=== PATIENT | male | born 1965 | race Caucasian/White ===

== ENCOUNTER 2019-02-09 10:32 | Emergency (ER) | payer BC, SELFPAY ==
[2019-02-09] VITALS (13 sets, daily range): BP systolic 122–142; BP diastolic 75–95; PULSE 83–116; RESP 14–28; TEMP 36.5; O2SAT 93–96
--- NOTE | 2019-02-09 11:17 | W.ED.GENAD ---
Discharge Plan Disposition Patient Disposition: HOME Condition: Improving Discharge Details Chief Complaint: GenMedical Clinical Impression: Acute viral syndrome, Urticaria Primary Care Provider: Omari Figueroa ED Provider: Maynor Tatum Home Meds and New Rx's Prescriptions: New dexamethasone [dexamethasone] 4 MG tablet 8 mg PO DAILY Qty: 4 RF: 0 No Action Electrolye Solution 1 dose PO TID RF: 0 Grass Fed Kidney 1 dose PO TID RF: 0 Discharge Instructions Instructions: Urticaria (ED) Additional Instructions: 1. Drink plenty of fluids. 2. Continue all medications as prescribed. 3. Acetaminophen 1000mg every 4 hours (up to 5 time a day) and/or ibuprofen 600mg every 6 hours as needed for fever or pain. 4. Decadron 8 mg once a day for 2 days starting tomorrow. 5. Zyrtec 10 mg once a day. 6. Ranitidine 300 mg at bedtime. Return to the Emergency Department (ED) if your condition worsens, does not improve as expected, or for ANY other concerns. Specifically, return if you have new or uncontrolled pain, worsening fever, difficulty breathing, vomiting, or are unable to drink fluids. Medical Decision Making Presents with acute urticaria in the setting of 2 weeks of intermittent dyspnea, congestion, and minimally productive cough. 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 Nonfocal exam except for tachycardia and a generalized urticarial exanthem on the upper extremities and trunk.. EKG nondiagnostic. Clinically improved after receiving oral ranitidine, oral Decadron, and oral Zyrtec. Discharged home with a plan for continued Decadron, Zyrtec, and ranitidine. We will follow-up with his PCP. Pt evaluated immediately prior to discharge with improved symptoms, normal vital signs, and tolerating PO. The patient feels appropriate for discharge home. Discussed clinical/diagnostic findings. Discharged with a clear plan for outpatient follow up. Given usual and customary return instructions prior to discharge. Medical Records Medical records reviewed: Yes I reviewed the patient's medical records. ECG Data Attestation: I personally reviewed and interpreted this ECG (s) as follows: Prior ECG tracings: not available for review Interpretation: Sinus tachycardia 100 bpm. Left axis deviation. No acute ST changes HPI 53-year-old gentleman with an unremarkable past medical history although he notes having recurrent mild episodes of urticaria. Presents with 2 weeks of a persistent upper respiratory infection (mild dyspnea, cough, congestion) for which she has been taking electrolyte supplements and grass fed supplements. She presents with generalized urticaria and mild subjective dyspnea. He notes that over the past 2 weeks, his dyspnea is typically worse in the morning and then seems to clear throughout the day. His cough has been nonproductive but he has noted recent occasional tinge of blood. He has mild pleuritic chest pain associated with his cough and with inspiration. He also has noted palpitations/strong heartbeat recently. Otherwise he denies significant fever/chills, abdominal pain, change in bowel habits/melena/hematochezia, urinary symptoms. He has had no atypical lower extremity pain or swelling. He wears compression stockings chronically for lower extremity varicosities. General Date/Time Provider Initiated Documentation: 02/09/19 11:06. Related Data Home Medications Medication Instructions Recorded Confirmed Electrolye Solution 1 dose PO TID 02/09/19 Grass Fed Kidney 1 dose PO TID 02/09/19 dexamethasone 8 mg PO DAILY #4 tab 02/09/19 Previous Rx's Medication Instructions Recorded dexamethasone 8 mg PO DAILY #4 tab 02/09/19 Allergies Allergy/AdvReac Type Severity Reaction Status Date / Time No Known Allergies Allergy Unverified 02/09/19 11:16 General Stated Complaint: GenMedical ALIZA: 3 Review of Systems Review of Systems All systems are reviewed and are unremarkable except as noted in HPI and below: CONSTITUTIONAL: no fevers/chills, no change in appetite; mild subjective generalized weakness EYES: no change in vision HEENT: no throat pain or difficulty swallowing; no neck pain CARDIOVASCULAR: Pleuritic chest pain worse with inspiration or cough, palpitations, no sniffing leg swelling, or diaphoresis RESPIRATORY: Mild cough, dyspnea, wheezing worse in the morning. Occasional blood tinged sputum GASTROINTESTINAL: no abdominal pain, melena, nausea/emesis GENITOURINARY: no dysuria, flank pain, MUSCULOSKELETAL: no pack pain, myalgias, arthralgias INTEGUMENTARY: no rash, no wounds NEUROLOGIC: no headache, focal weakness, difficulty with speech, numbness PSYCHIATRIC: no confusion, no anxiety HEME: no easy bruising or bleeding ALLERGIC: New urticaria PFSH Social History Smoking/Tobacco Use Status: Never Alcohol Intake: never Substance use type: does not use Do you feel safe at home: Yes Do you feel safe in your relationship?: Yes Exam Narrative Exam Narrative: Nursing note and vital signs have been reviewed and noted. GENERAL: alert, active, no acute distress, well -hydrated, well-nourished HEENT: atraumatic/normocephalic, PERRLA, EOMI, conjunctiva clear, external ears/canals normal, nasal mucosa normal NECK: supple, full range of motion, no mass, normal lymphadenopathy, no thyromegaly CARDIOVASCULAR: RRR, no murmurs, nl pulses, no edema PULMONARY: nl effort, no audible wheezing or stridor, nl breath sounds with no focal deficit. no chest wall tenderness ABDOMEN: soft, non-tender, non-distended, no mass, no organomegaly EXTREMITY: normal muscle tone, all joints with FROM, no deformity or tenderness SKIN: Urticarial patches on the trunk and upper extremities NEURO: gross motor exam normal, normal stance and gait PSYCH: alert and oriented, Course Vital Signs Temperature 97.7 F 02/09/19 11:11 Pulse 100 H 02/09/19 11:11 Respiratory Rate 18 02/09/19 11:11 Blood Pressure 142/95 H 02/09/19 11:11 Pulse Oximetry 94 L 02/09/19 11:11 Temperature 97.7 F 02/09/19 11:11 Temperature Source Temporal Artery Scan 02/09/19 11:11 Pulse 100 H 02/09/19 11:11 Respiratory Rate 18 02/09/19 11:11 Respiratory Effort Non-Labored 02/09/19 11:15 Blood Pressure 142/95 H 02/09/19 11:11 Blood Pressure Position Sitting 02/09/19 11:11 Pulse Oximetry 94 L 02/09/19 11:11 Oxygen Delivery Method Room Air 02/09/19 11:11 Oxygen Flow Rate 0 02/09/19 11:11 Pain Level 0 02/09/19 11:11
[2019-02-09] MEDS: Dexamethasone 4 MG TAB 8 MG PO (11:38)
[2019-02-09] MEDS: Cetirizine 10 MG TAB PO (11:38)
== END 2019-02-09 12:18 | disposition home or self-care (01) ==
PROVIDERS: Emergency Provider Emergency Medicine; PCP General Practice
DX: B34.9 Viral infection, unspecified (principal); L50.9 Urticaria, unspecified; R00.0 Tachycardia, unspecified
CPT/HCPCS: 93005; 99283; 93010; J8540

== ENCOUNTER 2019-07-07 02:51 | Outpatient (REF) | payer BC, SELFPAY ==
[2019-07-07 10:38] LABS: D-Dimer 374 ng/mlFEU (<500)
== END 2019-07-07 03:11 ==
LOC: LBN 02:51
PROVIDERS: PCP General Practice; Visit Provider Naturopath
DX: Z86.72 Personal history of thrombophlebitis (principal)
CPT/HCPCS: 85379

== ENCOUNTER 2019-12-27 08:08 | Outpatient (CLI) | payer OTHER, SELFPAY ==
[2019-12-27 09:25] LABS: Absolute Basophil Count 0.01 k/cumm (0.0-0.2); Absolute Eosinophil Count 0.03 k/cumm (0.0-0.7); Absolute Lymphocyte Count 0.98 k/cumm (1.2-3.4); Absolute Monocyte Count 0.29 k/cumm (0.11-0.7); Absolute Neutrophil Count 1.76 k/cumm (1.2-6.7); Basophils % 0.3; HCT 43.3 % (40.0-50.0); HGB 14.5 g/dL (13.5-17.5); Lymphocytes % 31.9; Mean Corp. HGB Concentration 33.5 g/dL (32.0-36.0); Mean Corpuscular Hemoglobin 29.3 pg (27.0-33.0); Mean Corpuscular Volume 87.5 fL (80-95); Mean Platelet Volume 9.6 fL (8.0-11.0); Monocytes % 9.4; Neutrophils % 57.4; Platelet Count 191 x1000/uL (130-400); RBC 4.95 m/cumm (4.50-6.00); RBC Distribution Width 14.3 % (11.8-14.1); White Blood Cell Count 3.07 k/cumm (4.4-10.8)
[2019-12-27 10:55] LABS: Ferritin 265 ng/mL (26-388); Vitamin B12 1001 pg/mL (193-986)
[2019-12-27 10:59] LABS: Folate > 20.0 ng/mL (8.6-20.0)
== END 2019-12-27 08:28 ==
PROVIDERS: PCP Naturopath; Visit Provider Naturopath
DX: L28.2 Other prurigo (principal); R77.8 Other specified abnormalities of plasma proteins; R79.89 Other specified abnormal findings of blood chemistry; R53.83 Other fatigue
CPT/HCPCS: 36415; 82607; 82728; 82746; 83088; 85025

== ENCOUNTER 2020-01-11 11:52 | Outpatient (CLI) | payer OTHER, SELFPAY ==
[2020-01-11 14:17] LABS: C-Reactive Protein 0.18 mg/dL (0.0-0.3)
[2020-01-11 15:11] LABS: ESR 13 mm/hr (1-20)
[2020-01-12 16:18] LABS: ANA Interpretation Positive (Negative); ANA Titer Pattern 1:320 Speckled
== END 2020-01-11 12:12 ==
PROVIDERS: PCP Naturopath; Visit Provider Naturopath
DX: M25.50 Pain in unspecified joint (principal)
CPT/HCPCS: 36415; 85652; 86038; 86140

== ENCOUNTER 2020-02-14 12:42 | Outpatient (CLI) | payer OTHER, SELFPAY ==
[2020-02-14 15:20] LABS: ALT 39 U/L (16-63); AST 30 U/L (15-37); Albumin 4.2 g/dL (3.4-5.0); Alkaline Phosphatase 46 U/L (46-116); Anion Gap 8.2 mmol/L (3-11); BUN 13 mg/dL (7-18); Bilirubin, Total 0.7 mg/dL (0.2-1.0); CO2 30.8 mmol/L (21.0-32.0); CREATININE 0.89 mg/dL (0.70-1.30); Calcium 9.1 mg/dL (8.5-10.1); Chloride 104 mmol/L (98-107); Ferritin 208 ng/mL (26-388); Glucose 83 mg/dL (74-106); Potassium 3.9 mmol/L (3.5-5.1); Sodium 143 mmol/L (136-145); Total Protein 7.6 g/dL (6.4-8.2)
[2020-02-15] LABS: Rheumatoid Factor <8.6 IU/mL (<12.0)
[2020-02-15 15:23] LABS: ANA Interpretation Positive (Negative); ANA Titer Pattern 1:320 Speckled
[2020-02-16 11:23] LABS: dsDNA Ab, IgG 20.4 IU/mL (<30.0)
[2020-02-16 14:19] LABS: RNP Ab, IgG 9.4 Units (<20.0); Sm (Smith) Ab, IgG 6.3 Units (<20.0)
== END 2020-02-14 13:02 ==
PROVIDERS: PCP Naturopath; Visit Provider Naturopath
DX: E78.5 Hyperlipidemia, unspecified (principal); R76.8 Other specified abnormal immunological findings in serum
CPT/HCPCS: 36415; 80053; 82728; 86038; 86225; 86235; 86431

== ENCOUNTER 2022-02-07 03:56 | Outpatient (CLI) | payer OTHER, SELFPAY ==
[2022-02-07 11:13] LABS: Kit/Specimen SENT
[2022-02-07 11:21] LABS: Abs Immature Grans 0.01 10^3/uL (0.0-0.06); Absolute Basophil Count 0.01 10^3/uL (0.0-0.2); Absolute Eosinophil Count 0.01 10^3/uL (0.0-0.7); Absolute Lymphocyte Count 1.17 10^3/uL (1.2-3.4); Absolute Monocyte Count 0.31 10^3/uL (0.1-0.8); Absolute Neutrophil Count 1.76 10^3/uL (1.2-6.7); Basophils % 0.3; Eosinophils % 0.3; HCT 43.2 % (40.0-50.0); HGB 14.2 g/dL (13.5-17.5); Immature Grans % 0.3; Lymphocytes % 35.8; MCH 29.8 pg (27.0-33.0); MCHC 32.9 % (32.0-36.0); MCV 90.8 fL (80-95); MPV 9.9 fL (8.0-11.0); Monocytes % 9.5; Neutrophils % 53.8; Nucleated RBC 0 %; Platelet Count 187 10^3/uL (130-400); RBC 4.76 10^6/uL (4.36-5.78); RDW 13.6 % (11.8-14.1); RDW-SD 45.8 fL; WBC 3.27 10^3/uL (4.4-10.8)
[2022-02-07 12:31] LABS: ALT 29 U/L (16-63); AST 25 U/L (15-37); Albumin 4.2 g/dL (3.4-5.0); Alkaline Phosphatase 45 U/L (46-116); Anion Gap 11.2 mmol/L (3-11); BUN 15 mg/dL (7-18); Bilirubin, Total 0.5 mg/dL (0.2-1.0); CO2 27.8 mmol/L (21.0-32.0); CREATININE 0.7 mg/dL (0.70-1.30); Calcium 8.6 mg/dL (8.5-10.1); Calculated LDL 192 mg/dL (<100); Chloride 101 mmol/L (98-107); Cholesterol 295 mg/dL (<200); Ferritin 42 ng/mL (26-388); Glucose 82 mg/dL (74-106); HDL Cholesterol 94 mg/dL (40-60); Potassium 4.3 mmol/L (3.5-5.1); Sodium 140 mmol/L (136-145); Total Protein 7.6 g/dL (6.4-8.2); Triglyceride 49 mg/dL (<150)
[2022-02-07 12:32] LABS: Folate > 20.0 ng/mL (8.6-20.0)
[2022-02-07 12:39] LABS: Vitamin D 25 Total 45.2 ng/mL (30-100)
[2022-02-08 07:59] LABS: Homocysteine 9.2 umol/L (5.0-13.9)
[2022-02-12 14:48] LABS: Dehydroepiandrosterone (DHEA) 1.7 ng/mL (<6.0)
[2022-02-14 14:24] LABS: Testosterone, Free 6.56 ng/dL (4.06-15.6); Testosterone, Total 437 ng/dL (240-950)
== END 2022-02-07 03:57 | disposition home or self-care (01) ==
LOC: LBO 03:56
PROVIDERS: PCP Naturopath; Visit Provider Naturopath
DX: R53.83 Other fatigue (principal); R51.9 Headache, unspecified; E53.8 Deficiency of other specified B group vitamins; R77.8 Other specified abnormalities of plasma proteins; E55.9 Vitamin D deficiency, unspecified; E78.5 Hyperlipidemia, unspecified
CPT/HCPCS: 36415; 80053; 80061; 82306; 83090; 84402; 84403; 82626; 82728; 82746; 83735; 85025

== ENCOUNTER 2022-03-04 02:54 | Outpatient (CLI) | payer OTHER, SELFPAY ==
[2022-03-04 15:08] LABS: Kit/Specimen SENT
== END 2022-03-04 02:55 | disposition home or self-care (01) ==
LOC: LBO 02:54
PROVIDERS: PCP Naturopath; Visit Provider Naturopath
DX: R53.83 Other fatigue (principal); A69.20 Lyme disease, unspecified; A77.49 Other ehrlichiosis
CPT/HCPCS: 36415; 80053; 80061; 82306; 83090; 84402; 84403; 82626; 82728; 82746; 83735; 85025

== ENCOUNTER 2022-07-12 01:20 | Outpatient (CLI) | payer OTHER, SELFPAY ==
--- OUTSIDE RECORDS SUMMARY | 2022-07-12 01:22 | XMS_ITS | Encounter Summary ---
:1965 Author Organization [place] [address] Care Team Providers Name Role Phone None Primary Care Provider Unavailable Reason for Visit Reason Comments Varicose Veins Consultation (Routine) - Specialty Diagnoses / Procedures Referred By Contact Refer red To Contact Vascular Surgery Diagnoses Varicose veins Norma Fair, [facility] [place] [place] Vascular Surg [address] [address] [place] [id number] [place], [place] [address] Referral ID Status Reason Start Date Expiration Date Visits V isits Requested Authorized [id number] Consult, Test 01/06/2020 01/05/2021 2 2 & Treat PCP Updated and/or Approved Encounter Details Date Type Department Care Team Description 01/25/2020 Office Visit Vascular Surgery at [facility], Varicose veins of left lower extremity with ulcer of calf, unspecified ulcer stage; [facility] MD Barry Venous insufficiency of both lower extre mities On license of [facility] [address] [place] CARDIOLOGY DEPT [id number] [place] [address] [phone] Social History Tobacco Use Types Packs/Day Years Used Date Never Smoker Smokeless Tobacco: Never Used Sex Assigned at Date Recorded Not on file documented as of this encounter Last Filed Vital Signs Vital Sign Reading Time Taken Comments Blood Pressure 125/75 01/25/2020 11:28 AM EST Pulse 71 01/25/2020 11:28 AM EST Temperature - - Respiratory Rate - - Oxygen Saturation - - Inhaled Oxygen Concentration - - Weight 88.5 kg (195 lb) 01/25/2020 11:28 AM EST reporte d Height 175.3 cm (5' 9) 01/25/2020 11:28 AM EST reporte d Body Mass Index 28.8 01/25/2020 11:28 AM EST documented in this encounter Progress Notes Barry Orona MD - 01/25/2020 11:30 AM EST Images from the original note were not included. [facility] [place] [address] [place] [address] CARDIOVASCULAR MEDICINE OUTPATIENT CONSULTATION Omari Chu [id number] 01/25/2020 REFERRING PROVIDER: Norma Fair CHIEF COMPLAINT: Chief Complaint Patient presents with ??? Varicose Veins PROBLEM LIST There are no active problems to display for this patient. HISTORY OF PRESENT ILLNESS: Mr. Chu is a very pleasant 54 year old man who presents for evaluation of bilateral varicose veins. He reports a long-standing history of varicose veins, dating back to when he was 18 years old. He has a family history of varicose veins. In the past, he has had venous ulcerations, which healed with ongoing compression and elevation. He has been using compression stockings 20-30 mm Hg that he buys online on a regular basis. These control his symptoms relatively well although at end of the day, he does note some lower extremity edema and leg heaviness. He notes some itching of lower extremities. Has no history of DVT or SVT. Varicosities themselves are not painful. 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 PAST MEDICAL HISTORY: No past medical history on file. REVIEW OF SYSTEMS: Negative except as stated in the HPI FAMILY HISTORY: No family history on file. SOCIAL HISTORY: Social History Tobacco Use ??? Smoking status: Never Smoker ??? Smokeless tobacco: Never Used Substance Use Topics ??? Alcohol use: Not on file MEDICATIONS: Current Outpatient Medications Medication Sig Dispense Refill ??? UNABLE TO FIND Methyl guard ??? UNABLE TO FIND B minus ??? [id number] oil 332.5-100-200 mg Capsule Take by mouth. ??? UNABLE TO FIND Cortison ??? UNABLE TO FIND Vesilforte ??? UNABLE TO FIND scutalaryn ??? calcium-vitamin D3 600 mg calcium- 400 unit Tablet Take by mouth. No current facility-administered medications for this visit. ALLERGIES: Patient has no known allergies. PHYSICAL EXAMINATION: Vital Signs: BP 125/75 (BP Location (NBP): Left arm, Patient Position: Sitting, BP Cuff Sizes: Adult (25-34 cm)) Pulse 71 Ht 175.3 cm (5' 9) Comment: reported Wt 88.5 kg (195 lb) Comment: reported BMI 28.80 kg/m?? Exam Details: General: Pleasant 54 y.o. man in no acute distress Eyes: No scleral icterus ENT: Moist mucous membranes Extremities: He has extensive varosities below knee bilaterally, which are not tender. He has a non-tender varicosity left medial thigh. There is a healed ulcer left medial ankle. Evidence of bilateralchronic venous insufficiency. No active ulcerations. No peripheral edema. Neuro: No gross abnormalities noted Psych: Alert and oriented 3 x, normal affect DATA PERSONALLY REVIEWED: None available ASSESSMENT AND PLAN: #1 Bilateral lower extremity varocisities #2 Bilateral venous insufficiency, LLE CEAP C5, RLE CEAP C4A Mr. Chu is a very pleasant 54 year old man with history of long-standing bilateral varicose veins and evidence of bilateral venous insufficiency and prior history of ulcerations several years ago with no active ulcers. He does have some ongoing symptoms of venous insufficiency, but these are mild and seem to be well controlled with compression stockings. We discussed the indications for treatment of varicosities. Given that his symptoms are mostly well controlled with compression, he would like tohold off thinking about any procedure. I think this is very reasonable. We discussed that if he has r ecurrent ulcerations or symptoms that are worsening despite the use of compression, he should let usknow - would then perform insufficiency duplex and have him meet one of my vascular surgery colleagues. I have given him a new prescription for compression. I have asked him to moisturize his lower extr emities on a regular basis and elevate his legs when he's sitting or laying down. Thank you for allowing me to participate in the care of your patient. Please do not hesitate to contact me with any questions or concerns. Barry Orona MD, MPH, RPVI Cardiovascular Principal StrategistAssistant Brand [place] [address] documented in this encounter Plan of Treatment Not on filedocumented as of this encounter Visit Diagnoses Diagnosis Varicose veins of left lower extremity w ith ulcer of calf, unspecified ulcer stage Venous insufficiency of both lower extre mities documented in this encounter Care Teams Personal Lines Appraiser Relationship Specialty Start Date End Date None PCP - General 01/25/20 None documented as of this encounter
--- OUTSIDE RECORDS SUMMARY | 2022-07-12 01:22 | XMS_ITS | Encounter Summary ---
:1965 Demographics Home Phone Preferred Language Unknown Marital Status Unknown Sikhism Affiliation Unknown Race Unknown Ethnic Group Unknown Author Organization [facility] Address [address] [place] [address] Care Team Providers Name Role Phone Unavailable Primary Care Provider Unavailable Encounter Details Date Type Department Care Team Description 01/11/2020 Lab Requisition [facility] Unknown, Provider, Pathology & Laboratory General acute hospital [address] [place] [address] [place] [address] Social History Tobacco Use Types Packs/Day Years Used Date Never Assessed Sex Assigned at Date Recorded Not on file documented as of this encounter Plan of Treatment Not on filedocumented as of this encounter Procedures Procedure Name Priority Date/Time Associated Diagnosis Comme nts ANTI NUCLEAR AB Routine 01/11/2020 12:55 Results for this (MALOU), IFA EST procedure are i n the results section. documented in this encounter Results (ABNORMAL) ANTI NUCLEAR AB (MALOU), IFA (01/11/2020 12:55 EST) MALOU Interpretation Positive (A) Negative [facility] Comment: [facility] For titers greater than or e qual to 1:160 (except the centromere and nucleolar patterns) it is recommended that specific follow-up autoantibody testing ??(such as for dsDNA and Extractable Nuclear Antig SERVICES ens) be performed on all diffuse and/or speckled patterns NOTE: For add-on testing dsD NA is priyanka for 7 days refrigerated while Extractable Nuclear Antigens are only stable for 48 hours refrigerated. MALOU Titer and Pattern 1:[address] LABORATORY SERVICES Specimen Blood - Venous blood (substance) Narrative [facility] - 01/12/2020 16:13 EST Results were obtained with the DOOMOROVA NOV A Lite HEp-2 MALOU Kit by indirect immunofluorescence. Performing Organization Address City/State/ZIP Code Phon e Number [facility] [address] [place] [address] SERVICES documented in this encounter Visit Diagnoses Not on filedocumented in this encounter
--- OUTSIDE RECORDS SUMMARY | 2022-07-12 01:22 | XMS_ITS | Encounter Summary ---
:1965 Demographics Home Phone Preferred Language Unknown Marital Status Unknown Oriental Orthodox Affiliation Unknown Race Unknown Ethnic Group Unknown Author Organization [facility] Address [address] [place] [address] Care Team Providers Name Role Phone Unavailable Primary Care Provider Unavailable Encounter Details Date Type Department Care Team Description 02/07/2022 Lab Requisition [facility] Outr Resulting Lab, Pathology & Laboratory Provider [facility] [address] [place] [address] Social History Tobacco Use Types Packs/Day Years Used Date Never Assessed Sex Assigned at Date Recorded Not on file documented as of this encounter Plan of Treatment Not on filedocumented as of this encounter Procedures Procedure Name Priority Date/Time Associated Diagnosis Comme nts HOMOCYSTEINE Routine 02/07/2022 11:05 EDT Results for this procedure are i n the results section . documented in this encounter Results HOMOCYSTEINE (02/07/2022 11:05 EDT) Pathologist Sig nature Homocysteine 9.2 5.0 - 13.9 umol/L [facility] Specimen Blood - Venous blood (substance) Narrative [facility] - 02/08/2022 7:55 EDT Reference range may not apply to non-fas ting samples. ??It is not recommended that EDTA plasma and serum from the same kavin ent be used interchangeably. ??Serum concentrations have been observed to be up to 10% higher than EDTA plasma. Reference range may not apply to serum results. Performing Organization Address City/State/ZIP Code Phon e Number [facility] [address] [place] [address] SERVICES documented in this encounter Visit Diagnoses Not on filedocumented in this encounter
--- OUTSIDE RECORDS SUMMARY | 2022-07-12 01:22 | XMS_ITS | Encounter Summary ---
:1965 Demographics Home Phone Preferred Language Unknown Marital Status Unknown Jain Affiliation Unknown Race Unknown Ethnic Group Unknown Author Organization [facility] Address [address] [place] [address] Care Team Providers Name Role Phone Unavailable Primary Care Provider Unavailable Encounter Details Date Type Department Care Team Description 02/14/2020 Lab Requisition [facility] Unknown, Provider, Pathology & Laboratory [facility] [address] [place] [address] [place] [address] Social History Tobacco Use Types Packs/Day Years Used Date Never Assessed Sex Assigned at Date Recorded Not on file documented as of this encounter Plan of Treatment Not on filedocumented as of this encounter Procedures Procedure Name Priority Date/Time Associated Comments Diagnosis SM (GUERRA) ANTIBODY Routine 02/14/2020 13:39 Resu lts for this EDT procedure are i n the results section. TECHNOLOGY COACH ANTIBODIES BY Routine 02/14/2020 13:39 Result s for this GISELLA EDT procedure are i n the results section. ANTI DNA (DOUBLE Routine 02/14/2020 13:39 Results for this STRANDED) EDT procedure are i n the results section. RHEUMATOID FACTOR Routine 02/14/2020 13:39 Result s for this EDT procedure are i n the results section. ANTI NUCLEAR AB Routine 02/14/2020 13:39 Results for this (MALOU), IFA EDT procedure are i n the results section. documented in this encounter Results RHEUMATOID FACTOR (02/14/2020 13:39 EDT) Pathologist Sig nature Rheumatoid Factor <8.6 <12.0 IU/mL [facility] Specimen Blood - Venous blood (substance) Narrative [facility] - 02/14/2020 23:56 EDT Note that a new method is in use as of 0 01/03/2020 Performing Organization Address City/State/ZIP Code Phon e Number [facility] [address] [place] [address] SERVICES ANTI DNA (DOUBLE STRANDED) (02/14/2020 13:39 EDT) Anti-DNA (Double 20.4 <30.0 IU/mL [facility] Stranded) Comment: LABORATORY ? SERV ICES ? Negative: ??<30.0 IU/mL ? Borderline Positive: ??30.0 - 75.0 IU/mL ? Positive: ??>75.0 IU/mL Results were obtained with MediameetingVA QUANTA Lite dsDNA SC GISELLA assay on the [employer]X. Specimen Blood - Venous blood (substance) Performing Organization Address City/[facility] Phon e Number [facility] [address] [place] [address] SERVICES TECHNOLOGY COACH ANTIBODIES BY GISELLA (02/14/2020 13:39 EDT) [facility] TECHNOLOGY COACH Antibody 9.4 <20.0 Units [facility] Comment: LABORATORY SERVICES ? Negative: <20.0 Units ? Weak Positive: 20.0 - 39.9 Units ? Moderate Positive: 40.0 - 80.0 Unit s ? Strong Positive: >80.0 Units Results were obtained with t Livradava Quanta Lite TECHNOLOGY COACH GISELLA. TECHNOLOGY COACH values obtained with different laboratory specialist's assay methods may not be used interchangeaby. ??The magnitude of the reported IgG levels cannot be be correlated to an endpoint titer. A positive result in the Nav nta Lite TECHNOLOGY COACH GISELLA indicates the presence of antibodies reactive with the TECHNOLOGY COACH/Sm complex but cannot distinguish between anti- Sm and anti-TECHNOLOGY COACH activity. Specimen Blood - Venous blood (substance) Performing Organization Address City/[facility]/ZIP Code Phon e Number [facility] [address] [place] [address] SERVICES SM (GUERRA) ANTIBODY (02/14/2020 13:39 EDT) [facility] SM (Guerra) 6.3 <20.0 Units [facility] Antibody Comment: LABORATORY ? Negative: <20.0 Units SERVICES ? Weak Positive: 20.0 - 39.9 Units ? Moderate Positive: 40.0 - 80.0 Unit s ? Strong Positive: >80.0 Units Results were obtained with dariana velazquez Crimson Hex[employer]VA QUANTA Lite Sm GISELLA. ??Sm values obtained with different manufacturers' assay methods may not be used interchangeably. ??The magnitude of the reported IgG levels cannot be correlated to an endpoint titer. Specimen Blood - Venous blood (substance) Performing Organization Address City/State/ZIP Code Phon e Number [facility] [address] [place] [address] SERVICES (ABNORMAL) ANTI NUCLEAR AB (MALOU), IFA (02/14/2020 13:39 EDT) MALOU Interpretation Positive (A) Negative [facility] Comment: [facility] For titers greater than or e qual to 1:160 (except the centromere and nucleolar patterns) it is recommended that specific follow-up autoantibody testing ??(such as for dsDNA and Extractable Nuclear Antig SERVICES ens) be performed on all diffuse and/or speckled patterns NOTE: For add-on testing dsD NA is stable for 7 days refrigerated while Extractable Nuclear Antigens are only stable for 48 hours refrigerated. MALOU Titer and Pattern 1:[address] LABORATORY SERVICES Specimen Blood - Venous blood (substance) Narrative [facility] - 02/15/2020 15:18 EDT Results were obtained with the INOVA NOV A Lite HEp-2 MALOU Kit by indirect immunofluorescence. Performing Organization Address City/[facility]/ZIP Code Phon e Number [facility] [address] [place] [address] SERVICES documented in this encounter Visit Diagnoses Not on filedocumented in this encounter
--- OUTSIDE RECORDS SUMMARY | 2022-07-12 01:22 | XMS_ITS | Clinical Summary ---
:1965 Demographics Home Phone Preferred Language Unknown Marital Status Unknown Yazidi Affiliation Unknown Race Unknown Ethnic Group Unknown Author Organization [facility] Address [address] [place] [address] Care Team Providers Name Role Phone Unavailable Primary Care Provider Unavailable Social History Tobacco Use Types Packs/Day Years Used Date Never Assessed Sex Assigned at Date Recorded Not on file Plan of Treatment Not on file
--- OUTSIDE RECORDS SUMMARY | 2022-07-12 01:22 | XMS_ITS | Clinical Summary ---
:1965 Author Organization [facility] [place] [address] Care Team Providers Name Role Phone None Primary Care Provider Unavailable Allergies No known active allergies Medications Medication Sig Dispensed Refills Start Date End Date Status UNABLE TO FIND Methyl guard 0 Ac tive UNABLE TO FIND B minus 0 Activ e [id number] oil Take by mouth. 0 Active 332.5-100-200 mg Capsule UNABLE TO FIND Cortison 0 Activ e UNABLE TO FIND Vesilforte 0 Acti ve UNABLE TO FIND scutalaryn 0 Acti ve calcium-vitamin D3 600 mg Take by mouth. 0 Active calcium- 400 unit Tablet Social History Tobacco Use Types Packs/Day Years Used Date Never Smoker Smokeless Tobacco: Never Used Sex Assigned at Date Recorded Not on file Last Filed Vital Signs Vital Sign Reading [...] Mass Index 28.8 01/25/2020 11:28 AM EST Plan of Treatment Health Maintenance Due Date Last Done Comments Covid-19 Vaccine (#1) 1972 HIV screen 1985 Hepatitis C Screening 1985 Lipid Screening 1985 Tdap adult 1986 Tetanus vaccine 1986 Diabetes Screening (HgbA1C or Glucose) 2007 Colonoscopy 2012 Zoster vaccine (1 of 2) 2017 Influenza (Flu) vaccine (1 of 1 - Influenza standard 07/25/2022 series) Insurance Payer Benefit Plan / Subscriber ID Effective Dates Phone Addre ss Type Group [place] P [place] [id number] 2020-Present [phone] [place] [address] Care Teams Sales Representative [employer] Relationship Specialty Start Date End Date None PCP - General 01/25/20 None
[2022-07-12 09:29] LABS: ALT 23 U/L (16-63); AST 22 U/L (15-37); Albumin 3.8 g/dL (3.4-5.0); Alkaline Phosphatase 40 U/L (46-116); Anion Gap 8.6 mmol/L (3-11); BUN 14 mg/dL (7-18); Bilirubin, Total 0.7 mg/dL (0.2-1.0); CO2 29.4 mmol/L (21.0-32.0); CREATININE 0.8 mg/dL (0.70-1.30); Calcium 8.5 mg/dL (8.5-10.1); Calculated LDL 127 mg/dL (<100); Chloride 101 mmol/L (98-107); Cholesterol 234 mg/dL (<200); Glucose 86 mg/dL (74-106); HDL Cholesterol 96 mg/dL (40-60); Potassium 3.9 mmol/L (3.5-5.1); Sodium 139 mmol/L (136-145); Total Protein 7.4 g/dL (6.4-8.2); Triglyceride 59 mg/dL (<150)
== END 2022-07-12 01:21 | disposition home or self-care (01) ==
LOC: LBO 01:20
PROVIDERS: PCP Naturopath; Visit Provider Naturopath
DX: E78.5 Hyperlipidemia, unspecified (principal)
CPT/HCPCS: 36415; 80053; 80061